=== PATIENT | male | born 1950 | race Caucasian/White ===

== ENCOUNTER → 2016-05-10 | Outpatient (REF) | payer OTHER, BC | LOC: M SMT 12:56 | PROVIDERS: ATTEND Urology | DX: C67.9 Malignant neoplasm of bladder, unspecified (principal) ==

== ENCOUNTER → 2016-06-05 | Outpatient (REF) | payer MEDICARE, BC | LOC: M SMT 12:57 | PROVIDERS: ATTEND Urology | DX: C67.9 Malignant neoplasm of bladder, unspecified (principal) ==

== ENCOUNTER → 2018-04-09 | Outpatient (REF) | payer MEDICARE | LOC: M SMT 17:12 | PROVIDERS: ATTEND Urology | DX: R39.198 Other difficulties with micturition (principal); Z85.51 Personal history of malignant neoplasm of bladder | CPT/HCPCS: 87086; 88108; G0463 ==

== ENCOUNTER → 2018-04-16 | Outpatient (CLI) | payer MEDICARE, BC ==
--- NOTE | 2018-04-16 11:04 | REP ---
Prostate sonography: History: Prostate nodule. Penile pain. Sonographic findings: Trans rectal prostate sonography demonstrates unremarkable seminal vesicles. Prostate gland is heterogeneously enlarged with calcifications and cystic changes noted. Glandular dimensions are measured at 4.1 x 2.8 x 4.5 cm with a calculated glandular volume of 27 ml. There is a 0.6 cm hypoechoic nodule in the right mid apical region. Moderate BPH changes are noted. Electronically Signed by Lucho Loera MD 04/16/2018 10:56 A
--- NOTE | 2018-04-16 11:13 | REP ---
LIMITED PELVIC, BLADDER SONOGRAPHY. HISTORY: Slow urinary stream. History of bladder cancer. FINDINGS: Scanning through the filled bladder demonstrates a prevoid calculated bladder volume of 106 mL. Postvoid bladder volume calculation is 5.7 mL, 5.3%. Visualized bladder thomas are smooth. No bladder mass lesion is observed. IMPRESSION: Limited filled volume. Otherwise negative. Electronically Signed by Lucho Loera MD 04/16/2018 03:08 P
== END ==
LOC: M RAD 08:26
PROVIDERS: ATTEND Urology
DX: N40.2 Nodular prostate without lower urinary tract symptoms (principal); Z85.51 Personal history of malignant neoplasm of bladder; N48.9 Disorder of penis, unspecified; R39.198 Other difficulties with micturition

== ENCOUNTER → 2018-08-03 | Outpatient (REF) | payer MEDICARE, BC | LOC: M SMT 12:51 | PROVIDERS: ATTEND Urology | DX: C67.9 Malignant neoplasm of bladder, unspecified (principal); Z85.528 Personal history of other malignant neoplasm of kidney ==

== ENCOUNTER → 2018-11-09 | Outpatient (CLI) | payer MEDICARE, BC ==
[2018-11-09 13:38] LABS: CALCIUM LEVEL 9.8 MG/DL (8.8-10.2); CREATININE FOR GFR 1.55 MG/DL (0.70-1.30); POTASSIUM SERUM 5.6 MEQ/L (3.5-5.1)
== END ==
LOC: M SMT 10:19
PROVIDERS: ATTEND Urology
DX: C67.9 Malignant neoplasm of bladder, unspecified (principal); Z85.528 Personal history of other malignant neoplasm of kidney; Z90.5 Acquired absence of kidney

== ENCOUNTER → 2018-11-09 | Outpatient (REF) | payer MEDICARE, BC | LOC: M SMT 13:05 | PROVIDERS: ATTEND Urology | DX: C67.9 Malignant neoplasm of bladder, unspecified (principal); Z85.528 Personal history of other malignant neoplasm of kidney ==

== ENCOUNTER → 2018-11-13 | Outpatient (CLI) | payer MEDICARE, BC ==
[~2018-11-13] MED LIST: ISOVUE-370 76% 100ML VIAL (Q9967) As Ordered ONE
--- NOTE | 2018-11-16 13:30 | REP ---
REASON: Status post left nephrectomy. CONTRAST: 100 mL [id number]. Right-sided CT urography was performed. Prior CT, 05/20/2016, from an outside institution was made available for review. Precontrast-enhanced portion of examination again showed multiple hepatic cysts, status quo. There are no choleliths. There are no right-sided nephroliths, and there are no right-sided ureteroliths. There are no urinary bladder calcifications. Contrast-enhanced portion of the examination shows no evidence of an abnormal enhancing hepatic lesion. There is no change in appearance of the hepatic parenchyma compared to the prior exam. The gallbladder, spleen, pancreas, adrenal glands, and right kidney are essentially unchanged. Note is again made of a right renal cyst, status quo. There is abdominal aortic ectasia seen in conjunction with an infrarenal abdominal aortic aneurysm, which measures 3.2 cm. This has developed since the last exam. This is seen in conjunction with a mural thrombus. There is also evidence of bilateral common iliac arterial ectasia. Limited evaluation of bowel loops shows them to be within normal limits. There is no free fluid or free air. CT PELVIS: Overall, the urinary bladder is not completed opacified with intravenous contrast. There are no definite filling defects, however, there is air density within the gas-dependent portion of the urinary bladder, which represents a change from the prior exam. There is no pelvic sidewall adenopathy. There is no free fluid or free air in the pelvis. The pelvic bowel loops are within normal limits. Bone window technique throughout the examination shows chronic changes involving the lumbar spine, status quo. CT urography shows no evidence of hydronephrosis or abnormal ureteral filling defects, however, the lower one third of the ureter was not opacified. IMPRESSION: 1. Unchanged hepatic cyst. 2. Unchanged right renal cyst. 3. Incomplete opacification of the distal right ureter, likely technical, however, this needs to be correlated clinically. 4. Air within the urinary bladder which needs to be correlated clinically. 5. Infrarenal abdominal aortic aneurysm, as described above, with bilateral common iliac arterial ectasia. 6. Other findings as described above. Electronically Signed by Fabian Oleary DO 11/16/2018 02:37 P
== END ==
LOC: M RAD 11:20
PROVIDERS: ATTEND Urology
DX: C67.9 Malignant neoplasm of bladder, unspecified (principal); Z85.528 Personal history of other malignant neoplasm of kidney; Z90.5 Acquired absence of kidney; K76.89 Other specified diseases of liver; N28.1 Cyst of kidney, acquired
CPT/HCPCS: 74178; Q9967

== ENCOUNTER → 2019-02-15 | Outpatient (REF) | payer MEDICARE, BC | LOC: M SMT 13:26 | PROVIDERS: ATTEND Urology | DX: C67.9 Malignant neoplasm of bladder, unspecified (principal) ==

== ENCOUNTER → 2019-07-06 | Outpatient (CLI) | payer MEDICARE, BC ==
--- NOTE | 2019-07-06 09:25 | REP ---
Abdominal aorta ultrasound: On a prior abdomen/pelvis CT dated 11/13/2018 there was a 3.2 cm aneurysm of the distal abdominal aorta. Abdominal Aortic Measurements are as follows: Proximal 2.3 cm AP 2.8 cm TRV Renal Artery Level 2.4 cm AP 2.7 cm TRV Mid Aorta 2.1 cm AP 2.4 cm TRV Distal Aorta 3.4 cm AP 3.6 cm TRV R Iliac Artery 1.7 cm AP 1.3 cm TRV L Iliac Artery 1.4 cm AP 1.2 cm TRV Impression: The distal aortic aneurysm today measures 3.4 x 3.6 cm and has increased size from the comparison CT. Electronically Signed by Max Musa MD 07/06/2019 09:16 A
== END ==
LOC: M RAD 07:28
PROVIDERS: ATTEND Physician Assistant
DX: I71.4 Abdominal aortic aneurysm, without rupture (principal)

== ENCOUNTER → 2019-08-16 | Outpatient (REF) | payer MEDICARE | LOC: M LAB REF 21:38 | PROVIDERS: ATTEND Urology | DX: C67.9 Malignant neoplasm of bladder, unspecified (principal) ==

== ENCOUNTER → 2020-01-24 | Outpatient (CLI) | payer MEDICARE, BC ==
--- NOTE | 2020-02-03 07:50 | REP ---
CT CHEST WITHOUT CONTRAST HISTORY: Abdominal aortic aneurysm without rupture. COMPARISON CHEST CT: None. CT FINDINGS: There is a calcified granuloma in the right lower lobe. There are granulomatous lymph node calcifications in the subcarinal region. No pathologic adenopathy is seen in the mediastinum or hilar regions. Incidental note is made of an aberrant right subclavian artery. There is no evidence of thoracic aortic aneurysm. There is some vascular calcification in the distribution of the left coronary artery. Ascending aorta measures 3.3 cm in AP dimension at the level of the right main pulmonary artery. The descending aorta measures 2.9 cm in AP dimension. There are granulomatous lymph node calcifications in the right hilus. There are scattered small cysts in the left and right lobe of the liver. Normal adrenal glands are seen. No pleural or pericardial effusion is seen. The lung ozuna are free of infiltrate. No significant pulmonary nodule or mass lesion is seen. IMPRESSION: Old calcified granulomatous residuals. Vascular calcification left coronary artery. Aberrant right subclavian artery. Otherwise no acute disease. MTDD
--- NOTE | 2020-02-03 07:51 | REP ---
CT ABDOMEN AND PELVIS WITHOUT INTRAVENOUS (IV) OR ORAL CONTRAST HISTORY: Abdominal aortic aneurysm without rupture. COMPARISON CT STUDY: 11/13/2018. Outside prior CT studies are available from 05/20/2016 and 04/04/[address] FINDINGS: There are granulomatous calcifications scattered in the spleen. There are multiple small stable benign cysts throughout the liver. The largest of these is inferiorly in the right lobe measuring 4.2 cm in greatest diameter. These are unchanged. The patient is status post left nephrectomy. No adrenal lesion is seen on either side. No abnormality is observed in the pancreas. The gallbladder is unremarkable. There is a right renal cyst measuring 1.3 cm in greatest diameter. The abdominal aorta measures 2.8 cm in AP dimension at the diaphragm hiatus. At the level of the renal artery origins, AP dimension of the aorta is 2.6 cm. The distal aorta is aneurysmally dilated with an AP dimension of 3.6 cm today. Previously 3.2 cm by report of the prior study, 3.5 cm by my measurement. 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 Previously, this measures 2.2 cm. No other iliac artery aneurysm is seen. Normal appendix is noted. Small and large intestinal bowel loops are seen and they are felt to be unremarkable. There is a small epigastric hernia transmitting abdominal fat in the supraumbilical anterior abdominal wall midline. No other abdominal wall defect is seen. Seminal vesicle, prostate, and urinary bladder are unremarkable. There is fatty infiltration of the spermatic cords, left greater than right. IMPRESSION: A 3.6 cm infrarenal abdominal aortic aneurysm. 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 Stable hepatic and right renal cyst, post left nephrectomy. MTDD
== END ==
LOC: M RAD 07:27
PROVIDERS: ATTEND Physician Assistant
DX: I71.4 Abdominal aortic aneurysm, without rupture (principal)

== ENCOUNTER → 2020-02-14 | Outpatient (REF) | payer MEDICARE, BC | LOC: M SMT 13:33 | PROVIDERS: ATTEND Urology | DX: C67.9 Malignant neoplasm of bladder, unspecified (principal) ==

== ENCOUNTER → 2020-08-14 | Outpatient (REF) | payer MEDICARE, BC | LOC: M SMT 13:26 | PROVIDERS: ATTEND Urology | DX: C67.9 Malignant neoplasm of bladder, unspecified (principal) ==

== ENCOUNTER → 2021-02-12 | Outpatient (REF) | payer MEDICARE, BC | LOC: M SMT 13:28 | PROVIDERS: ATTEND Urology | DX: C80.1 Malignant (primary) neoplasm, unspecified (principal) ==

== ENCOUNTER → 2022-02-18 | Outpatient (REF) | payer MEDICARE, BC | LOC: M SMT 12:55 | PROVIDERS: ATTEND Urology | DX: C67.9 Malignant neoplasm of bladder, unspecified (principal) ==

== ENCOUNTER → 2023-02-24 | Outpatient (REF) | payer MEDICARE, BC | LOC: M SMT 09:54 | PROVIDERS: ATTEND Urology | DX: C67.9 Malignant neoplasm of bladder, unspecified (principal); Z85.528 Personal history of other malignant neoplasm of kidney ==

== ENCOUNTER → 2024-02-16 | Outpatient (REF) | payer MEDICARE, BC | LOC: M SMT 09:41 | PROVIDERS: ATTEND Urology | DX: C67.9 Malignant neoplasm of bladder, unspecified (principal) ==

== ENCOUNTER → 2024-07-08 | Outpatient (REF) | payer MEDICARE, BC ==
[2024-07-08 18:07] LABS: TOTAL PROTEIN,RANDOM URINE 14.3 MG/DL (0.0-14.0)
[2024-07-08 18:11] LABS: CREATININE,RANDOM URINE 127.9 MG/DL
== END ==
LOC: M LAB REF 17:24
PROVIDERS: ATTEND Internal Medicine Nephrology
DX: N18.31 Chronic kidney disease, stage 3a (principal)

== ENCOUNTER → 2025-02-21 | Outpatient (REF) | payer MEDICARE, BC | LOC: M SMT 13:05 | PROVIDERS: ATTEND Urology | DX: C67.9 Malignant neoplasm of bladder, unspecified (principal) ==